=== PATIENT | female | born 1990 | race Asian ===

== ENCOUNTER 2023-11-04 15:01 | Emergency (ER) | payer MEDICAID, OTHER ==
[~2023-11-04] VITALS: Ht 157.5 cm; Wt 46.0 kg
[2023-11-04] MEDS ORDERED: diphenhdrAMINE HCL 50 MG/1 ML VL IM ONE (15:15)
[2023-11-04] MEDS ORDERED: DexAMETHasone SOD PHOS 10MG/1ML VIAL INJ IM ONE (15:15)
[2023-11-04] MEDS ORDERED: PRED20TA2 PO (16:22)
[2023-11-04 16:32] VITALS: BP 100/62; PULSE 79; RESP 18; O2SAT 100
== END 2023-11-04 16:33 | disposition home or self-care (01) ==
LOC: ER 15:01
DX: T78.1XXA Other adverse food reactions, not elsewhere classified, initial encounter (principal); Z91.011 Allergy to milk products; X58.XXXA Exposure to other specified factors, initial encounter
CPT/HCPCS: 96372; 99284; J1100; J1200

== ENCOUNTER 2024-11-27 06:47 | Emergency (ER) | payer OTHER ==
[~2024-11-27] VITALS: Ht 157.5 cm; Wt 54.0 kg
[2024-11-27 06:47] VITALS: BP 106/64; PULSE 77; RESP 16; O2SAT 99
[~2024-11-27 06:47] MED LIST: PRED20TA2 PO
--- NOTE | 2024-11-27 07:18 | ED.PDOC ---
GI ASSESSMENT HPI Comments 34 year old female brought in by EMS presents to the ED with a chief complaint of abdominal pain onset today around 04:00. Patient states she woke up around 04:00 experiencing diffused abdominal pain, nausea, chills as well as rash on face and arms, took Zyrtec and resolved on its own. Patient states last meal was yesterday around 19:00. PMHx Asthma. Denies chest pain, shortness of breath, vomiting, diarrhea, constipation, fevers, headache, dizziness. No other symptoms or modifying factors present at this time. Chief Complaint: Abdominal Pain Time Seen by MD: 07:08 Primary Care Provider: DEMARCUS Reviewed Notes: Medications, Allergies Allergies: Coded Allergies: Milk-related Compounds (Verified Allergy, Unknown, 11/04/23) Home Meds Active Scripts Prednisone (Prednisone) 20 Mg Tab, 20 MG PO DAILY for 5 Days, #5 MG Prov:KETAN NUNEZ 11/04/23 Information Source: Patient, Emergency Med Personnel Mode of Arrival: EMS Timing: Hours Duration: Intermittent Prehospital treatment: None Quality: Stabbing Vomitus: None Severity: Moderate Recent: None Recent Hx of: None Pain Location: Diffuse Modifying Factors: Nothing Associated sign and symptoms: Nausea, Abdominal Pain Past Medical History PAST MEDICAL HISTORY: Asthma Surgical History: Denies all surgeries [employer] History: No Pertinent [employer] History Family History Family History: Unknown Social History Smoker: Non-Smoker Alcohol: Denies ETOH Use Drugs: Denies Drug Use Lives In: Home Constitutional: reports: chills; denies: diaphoresis, fatigue, fever, malaise, sweats, weakness, others EENTM: denies: blurred vision, double vision, ear bleeding, ear discharge, ear drainage, ear pain, ear ringing, eye pain, eye redness, hearing loss, mouth pain, mouth swelling, nasal discharge, nose bleeding, nose congestion, nose pain, photophobia, tearing, throat pain, throat swelling, voice changes, others Respiratory: denies: cough, hemoptysis, orthopnea, SOB at rest, shortness of breath, SOB with excertion, stridor, wheezing, others Cardiovascular: denies: chest pain, dizzy spells, diaphoresis, Dyspnea on exertion, edema, irregular heart beat, left arm pain, lightheadedness, palpitations, PND, syncope, others Gastrointestinal: reports: abdominal pain, nausea; denies: abdomen distended, blood streaked bowels, constipated, diarrhea, dysphagia, difficulty swallowing, hematemesis, melena, poor appetite, poor fluid intake, rectal bleeding, rectal pain, vomiting, others Genitourinary: denies: abnormal vagina bleeding, burning, dyspareunia, dysuria, flank pain, frequency, hematuria, incontinence, pain, , vagina discharge, urgency, others Neurological: denies: dizziness, fainting, headache, left sided numbness, left sided weakness, numbness, paresthesia, pre-existing deficit, right sided numbness, right sided weakness, seizure, speech problems, tingling, tremors, weakness, others Musculoskeletal: denies: back pain, gout, joint pain, joint swelling, muscle pain, muscle stiffness, neck pain, others Integumetry: reports: rash; denies: bruises, change in color, change in hair/nails, dryness, laceration, lesions, lumps, wounds, others Allergic/Immunocompromised: denies: Difficulty Healing, Frequent Infections, Hives, Itching, others Hematologic/Lymphatic: denies: anemia, blood clots, easy bleeding, easy bruising, swollen glands, others Endocrine: denies: excessive hunger, excessive sweating, excessive thirst, excessive urination, flushing, intolerance to cold, intolerance to heat, unexplained weight gain, unexplained weight loss, others Psychiatric: denies: anxiety, bipolar disorder, depression, hopeless, panic disorder, schizophrenia, sleepless, suicidal, others All Other Systems: Reviewed and Negative Physical Exam General Appearance: Mild Distress, Normal, Other (Acute allergic reaction generalized this morning feeling itchy everywhere and feeling like she has a rash) HEENT: Normal ENT Inspection, PERRL/EOMI, Pharynx Normal, TMs Normal Neck: Full Range of Motion, Non-Tender, Normal, Normal Inspection Respiratory: Chest Non-Tender, Lungs Clear, No Accessory Muscle Use, No Respir atory Distress, Normal Breath Sounds Cardiovascular: No Edema, No JVD, No Murmur, No Gallop, Normal Peripheral Pulses, Regular Rate/Rhythm Breast Exam: Deferred Gastrointestinal: No Organomegaly, Non Tender, No Pulsatile Mass, Normal Bowel Sounds, Soft Genitalia: Deferred Pelvic: Deferred Rectal: Deferred Extremities: No calf tenderness, Normal capillary refill, Normal inspection, Normal range of motion, Non-tender, No pedal edema Musculoskeletal : Apperance: Normal Neurologic: Alert, 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 Was a procedure done?: No GI differential Dx Differential Diagnosis: Gastroenteritis, Inflammatory BD, Dehydration, Diabetes/ DKA, Drug toxicity, Electrolyte Imbalance, Anemia, Other (Acute allergic reaction etiology unknown) X-Ray, Labs, Meds, VS Vital Signs Date Time Temp Pulse Resp B/P (MAP) Pulse Ox O2 Delivery O2 Flow Rate FiO2 11/27/24 06:47 98.4 77 16 106/64 (78) 99 Lab Test 11/27/24 07:25 11/27/24 07:24 Range/Units White Blood Count 5.6 4.4-10.8 10^3/uL Red Blood Count 4.29 4.0-5.20 10^6/uL Hemoglobin 12.9 12.2-16.2 g/dL Hematocrit 39.4 36.0-46.0 % Mean Corpuscular Volume 91.7 80.0-100.0 fL Mean Corpuscular Hemoglobin 30.0 28.0-32.0 pg Mean Corpuscular Hemoglobin Concent 32.7 32.0-36.0 g/dL Red Cell Distribution Width 13.2 11.8-14.3 % Platelet Count 215 140-450 10^3/uL Mean Platelet Volume 7.2 6.9-10.8 fL Neutrophils (%) (Auto) 78.1 37.0-80.0 % Lymphocytes (%) (Auto) 15.8 10.0-50.0 % Monocytes (%) (Auto) 5.7 0.0-12.0 % Eosinophils (%) (Auto) 0.3 0.0-7.0 % Basophils (%) (Auto) 0.1 0.0-2.0 % Neutrophils # (Auto) 4.4 1.6-8.6 10 ^3/uL Lymphocytes # (Auto) 0.9 0.4-5.4 10 ^3/uL Monocytes # (Auto) 0.3 0-1.3 10 ^3/uL Eosinophils # (Auto) 0 0-0.8 10 ^3/uL Basophils # (Auto) 0 0-0.2 10 ^3/uL Nucleated Red Blood Cells 0.1 % Sodium Level 141 136-145 mmol/L Potassium Level 4.3 3.5-5.1 mmol/L Chloride Level 107 98-107 mmol/L Carbon Dioxide Level 27 20-31 mmol/L Anion Gap 7 5-15 Blood Urea Nitrogen 13 9-23 mg/dL Creatinine 0.70 0.550-1.02 mg/dL Glomerular Filtration Rate Calc 117 >90 mL/min BUN/Creatinine Ratio 18.6 10.0-20.0 Serum Glucose 93 74-106 mg/dL Calcium Level 9.8 8.7-10.4 mg/dL Magnesium Level 1.9 1.6-2.6 mg/dL Lipase 44 12-53 U/L Urine Color Light-yellow Yellow Urine Clarity Clear Clear Urine pH 6.5 5.0-9.0 Urine Specific [place] 1.020 1.001-1.035 Urine Protein Negative Negative Urine Ketones Negative Negative Urine Blood Negative Negative /uL Urine Nitrite Negative Negative Urine Bilirubin Negative Negative Urine Urobilinogen Normal Negative mg/dL Urine Leukocyte Esterase Negative Negative /uL Urine RBC 1 0 - 4 /hpf Urine Microscopic WBC 1 0-5 /HPF Urine Squamous Epithelial Cells Few <5 /hpf Urine Bacteria None seen None Seen /hpf Urine Glucose Normal Normal mg/dL Current Medications Medications (Trade) Dose Ordered Sig/Eric Route Start Time Stop Time Status Last Admin Sodium Chloride 500 ml @ 500 mls/hr Q1H ONCE IVB 11/27/24 07:30 11/27/24 08:29 DC 11/27/24 07:50 Diphenhydramine HCl (Benadryl Injection) 25 mg ONCE ONCE IV 11/27/24 07:30 11/27/24 07:31 DC 11/27/24 07:50 Dexamethasone Sodium Phosphate (Decadron Injection) 4 mg ONCE ONCE IV 11/27/24 07:30 11/27/24 07:31 DC 11/27/24 07:50 Pantoprazole Sodium (Protonix) 40 mg ONCE ONCE IV 11/27/24 07:30 11/27/24 07:31 DC 11/27/24 07:50 X-Ray, Labs, Meds, VS Comment Seen in the emergency department eventful patient came in complaining of abdominal pain but mostly acute allergic reaction CBC negative Urine negative BNP negative Magnesium 1.9 Lipase 44 Patient felt better and eloped Time of 1ST Reevaluation: 07:38 Reevaluation 1ST: Unchanged Patient Education/Counseling: Diagnosis, Treatment, Prognosis Family Education/Counseling: No Family Present Additional Information - The following tests were ordered, and results were reviewed by me: CBC, LIPASE, UA, MAGNESIUM, BMP - Additional information was gathered from interviewing the following independent Historian: EMS - I discussed treatments and results with medical personnel and: patient Departure 1 Departure Time of Disposition: 12:18 Impression: Primary Impression: Acute allergic reaction Qualified Codes: T78.40XA - Allergy, unspecified, initial encounter Additional Impression: Urticaria Disposition: 07 LEFT AWOL/ELOPED Condition: Good Additional Instructions: Push fluids and follow up with your PCP Discharged With: Self Critical Care Note Critical Care Time?: No Stability Stability form required: No Heart Score Heart Score: Heart Score Response (Comments) Value History N/A 0 EKG N/A 0 Age <45 0 Risk Factors No known risk factors 0 Troponin N/A 0 Total 0 I personally scribed for RIKI BIGGS MD ([email or web address]) on 11/27/24 at 07:18. Electronically submitted by Mariia Benitez ([email or web address]). I personally scribed for RIKI BIGSG MD ([email or web address]) on 11/27/24 at 07:30. Electronically submitted by Mariia Benitez ([email or web address]). RIKI BIGGS MD Nov 27, 2024 07:18
[2024-11-27] MEDS: SODIUM CHLORIDE 0.9% 500 ML IVB ONE (07:50)
[2024-11-27] MEDS: diphenhdrAMINE HCL 50 MG/1 ML VL IV ONE (07:50)
[2024-11-27] MEDS: DexAMETHasone SOD PHOS 4 MG/1ML SDV INJ IV ONE (07:50)
[2024-11-27] MEDS: PANTOPRAZOLE 40 MG/10 ML VIAL INJ IV ONE (07:50)
[2024-11-27 08:03] LABS: Basophils # (auto) 0 10 ^3/uL (0-0.2); Basophils % (auto) 0.1 % (0.0-2.0); Eosinophils # (auto) 0 10 ^3/uL (0-0.8); Eosinophils % (auto) 0.3 % (0.0-7.0); Hematocrit 39.4 % (36.0-46.0); Hemoglobin 12.9 g/dL (12.2-16.2); Lymphocytes # (auto) 0.9 10 ^3/uL (0.4-5.4); Lymphocytes % (auto) 15.8 % (10.0-50.0); Mean Corpuscular Hgb Conc. 32.7 g/dL (32.0-36.0); Mean Corpuscular Volume 91.7 fL (80.0-100.0); Monocytes # (auto) 0.3 10 ^3/uL (0-1.3); Monocytes % (auto) 5.7 % (0.0-12.0); Neutrophils # (auto) 4.4 10 ^3/uL (1.6-8.6); Neutrophils % (auto) 78.1 % (37.0-80.0); Nucleated Red Blood Cells % 0.1 %; Platelet Count (auto) 215 10^3/uL (140-450); Red Blood Cells 4.29 10^6/uL (4.0-5.20); Red Cell Distribution Width 13.2 % (11.8-14.3); White Blood Cell 5.6 10^3/uL (4.4-10.8)
[2024-11-27 08:16] LABS: Chloride 107 mmol/L (98-107); Potassium 4.3 mmol/L (3.5-5.1); Sodium 141 mmol/L (136-145)
[2024-11-27 08:17] LABS: Anion Gap 7 (5-15); Calcium 9.8 mg/dL (8.7-10.4); Carbon Dioxide 27 mmol/L (20-31)
[2024-11-27 08:22] LABS: BUN/Creatinine Ratio 18.6 (10.0-20.0); Blood Urea Nitrogen 13 mg/dL (9-23); Glucose 93 mg/dL (74-106)
[2024-11-27 08:23] LABS: Magnesium 1.9 mg/dL (1.6-2.6)
[2024-11-27 08:41] LABS: Lipase 44 U/L (12-53)
[2024-11-27 08:41] LABS: Urine Bacteria None Seen /hpf (None Seen)
[2024-11-27 09:08] LABS: Urine Blood Negative /uL (Negative); Urine Clarity Clear (Clear); Urine Color Light-Yellow (Yellow); Urine Protein, UAD Negative (Negative); Urine Squamous Epithelial Cell FEW /hpf (<5); Urine Urobilinogen Normal (Negative); Urine WBC 1 /HPF (0-5); Urine pH 6.5 (5.0-9.0)
== END 2024-11-27 12:55 | disposition left against medical advice (07) ==
LOC: EDBD 06:47 → ER 06:47
DX: T78.49XA Other allergy, initial encounter (principal); L50.9 Urticaria, unspecified; J45.909 Unspecified asthma, uncomplicated; Z79.52 Long term (current) use of systemic steroids; Z91.011 Allergy to milk products; X58.XXXA Exposure to other specified factors, initial encounter
CPT/HCPCS: 36415; 80048; 81001; 83690; 83735; 85025; 96361; 96374; 96375; 99284; J1200; J2470; J7040; J1100